=== PATIENT | female | born 1975 | race Caucasian/White ===

== ENCOUNTER 2017-02-13 18:38 | Emergency (ER) | payer OTHER ==
[~2017-02-13] VITALS: Ht 162.6 cm; Wt 78.0 kg
[2017-02-13 22:34] VITALS: BP 132/79
== END 2017-02-13 22:35 | disposition home or self-care (01) ==
LOC: ED 18:38
DX: N83.202 Unspecified ovarian cyst, left side (principal)
CPT/HCPCS: 87491; 87591; J0696

== ENCOUNTER 2017-03-18 19:50 | Emergency (ER) | payer MEDICAID ==
[2017-03-18 22:50] VITALS: BP 118/78
== END 2017-03-18 22:50 | disposition home or self-care (01) ==
LOC: ED 19:50
DX: S69.91XA Unspecified injury of right wrist, hand and finger(s), initial encounter (principal); Z98.51 Tubal ligation status; W01.0XXA Fall on same level from slipping, tripping and stumbling without subsequent striking against object, initial encounter; Y93.89 Activity, other specified; Y92.89 Other specified places as the place of occurrence of the external cause; Y99.8 Other external cause status

== ENCOUNTER 2017-07-27 13:11 | Emergency (ER) | payer MEDICAID ==
[~2017-07-27] VITALS: Ht 162.6 cm; Wt 75.7 kg
[2017-07-27 14:20] LABS: BASOPHIL % 0.5 % (0-2); PLATELET COUNT 212 x10^3mcL (130-400); RED CELL DISTRIBUTION WIDTH 13.4 % (11.5-14.5)
[2017-07-27 14:49] LABS: UA SPECIFIC GRAVITY >=1.030 (1.005-1.035); microscopic required? YES
[2017-07-27 14:50] LABS: urine erythrocyte 2+ (NEGATIVE)
[2017-07-27 16:34] VITALS: BP 121/71
== END 2017-07-27 16:34 | disposition home or self-care (01) ==
LOC: ED 13:11
PROVIDERS: Emergency Medicine
DX: N94.6 Dysmenorrhea, unspecified (principal); N83.202 Unspecified ovarian cyst, left side; N83.201 Unspecified ovarian cyst, right side; Z79.1 Long term (current) use of non-steroidal anti-inflammatories (NSAID); Z98.51 Tubal ligation status
CPT/HCPCS: 36415

== ENCOUNTER 2019-05-13 20:15 | Emergency (ER) | payer MEDICAID ==
[~2019-05-13] VITALS: Ht 162.6 cm; Wt 82.6 kg
[2019-05-13 20:22] VITALS: Ht 162.6 cm; Wt 82.6 kg
[2019-05-13 22:01] VITALS: BP 122/80
== END 2019-05-13 22:01 | disposition home or self-care (01) ==
LOC: ED 20:15
DX: T78.3XXA Angioneurotic edema, initial encounter (principal); Z98.51 Tubal ligation status; Z98.890 Other specified postprocedural states; X58.XXXA Exposure to other specified factors, initial encounter
CPT/HCPCS: J1200; J7512

== ENCOUNTER 2019-07-12 16:26 | Emergency (ER) | payer MEDICAID ==
[~2019-07-12] VITALS: Ht 162.6 cm; Wt 83.0 kg
[2019-07-12 16:38] VITALS: Ht 162.6 cm; Wt 83.0 kg
[2019-07-12 17:27] LABS: BASOPHIL % 0.9 % (0-2); PLATELET COUNT 243 x10^3mcL (130-400); RED CELL DISTRIBUTION WIDTH 13.9 % (11.5-14.5)
[2019-07-12 17:35] LABS: CALCIUM 8.4 mg/dL (8.5-10.1); CHLORIDE SERUM 104 mmol/L (98-107); CREATININE SERUM 0.7 mg/dL (0.6-1.0); GFR1 > 60 mL/min; GLUCOSE SERUM 80 mg/dL (74-106); POTASSIUM SERUM 4.3 mmol/L (3.5-5.1); SODIUM SERUM 140 mmol/L (136-145)
[2019-07-12 17:39] LABS: ALBUMIN 3.5 g/dL (3.4-5.0); ALKALINE PHOSPHATASE 57 U/L (46-116); ALT/SGPT 38 U/L (14-59); AST/SGOT 40 U/L (15-37); BILIRUBIN TOTAL 0.3 mg/dL (0.20-1.00); CHOLESTEROL 175 mg/dL (<200); LIPASE 113 IU/L (73-393)
[2019-07-12 18:01] LABS: UA SPECIFIC GRAVITY 1.025 (1.005-1.035); microscopic required? YES; urine erythrocyte NEGATIVE (NEGATIVE)
[2019-07-12 18:12] LABS: AMPHETAMINE QUAL UR NONE DETECTED (See below)
[2019-07-12 21:20] VITALS: BP 130/57
== END 2019-07-12 21:20 | disposition home or self-care (01) ==
LOC: ED 16:26
PROVIDERS: Emergency Medicine
DX: N39.0 Urinary tract infection, site not specified (principal); E66.9 Obesity, unspecified; Z68.31 Body mass index [BMI] 31.0-31.9, adult; Z98.51 Tubal ligation status
CPT/HCPCS: J1885; J7030; Q0092

== ENCOUNTER 2019-10-16 20:54 | Emergency (ER) | payer MEDICAID ==
[~2019-10-16] VITALS: Ht 162.6 cm; Wt 84.8 kg
[2019-10-16 20:58] VITALS: Ht 162.6 cm; Wt 84.8 kg
[2019-10-17 00:55] VITALS: BP 140/87
== END 2019-10-17 00:55 | disposition home or self-care (01) ==
LOC: ED 20:54
DX: J10.1 Influenza due to other identified influenza virus with other respiratory manifestations (principal)
CPT/HCPCS: 87804; J0696